=== PATIENT | female | born 1950 | race Hispanic/Latino ===

== ENCOUNTER → 2017-11-23 | Outpatient (CLI) | payer MEDICARE ==
[~2017-11-23] MED LIST: AMLO5TAB2 PO; FENO145T37 PO; INSLAN SQ; LISI2.5T2 PO; LOSA1TAB54 PO
== END | disposition home or self-care (01) ==
LOC: RAH 07:53
PROVIDERS: ATTEND Family Medicine
DX: I63.9 Cerebral infarction, unspecified (principal); G31.9 Degenerative disease of nervous system, unspecified; I73.9 Peripheral vascular disease, unspecified; Z86.73 Personal history of transient ischemic attack (TIA), and cerebral infarction without residual deficits
CPT/HCPCS: 70551

== ENCOUNTER → 2023-09-04 | Outpatient (CLI) | payer MEDICARE ==
[~2023-09-04] MED LIST changes: +ACET-2079 PO; +AEC81 PO; +AMLO-257 PO; -AMLO5TAB2 PO; +AMLO5TAB5 PO; +ATOR40TA69 PO; +FAMO-136 PO; +FENO145T26 PO; -FENO145T37 PO; +FERR324T4 PO; +FLUO20CA30 PO; +LISI2.5T13 PO; -LISI2.5T2 PO; +LOSA-420 PO; +SENN-141 PO
== END | disposition home or self-care (01) ==
LOC: RAH 14:10
PROVIDERS: ATTEND Family Medicine
DX: Z12.31 Encounter for screening mammogram for malignant neoplasm of breast (principal); Z13.820 Encounter for screening for osteoporosis; M85.88 Other specified disorders of bone density and structure, other site
CPT/HCPCS: 77067; 77080

== ENCOUNTER 2024-12-25 18:56 | Inpatient (IN) | payer MEDICARE ==
[~2024-12-25] VITALS: Ht 149.9 cm; Wt 64.0 kg
[~2024-12-25 18:56] MED LIST changes: -ACET-2079 PO; -AEC81 PO; -AMLO-257 PO; -AMLO5TAB5 PO; +AMOX1TAB16 PO; +ASPI-1443 PO; -ATOR40TA69 PO; -FAMO-136 PO; -FENO145T26 PO; -FERR324T4 PO; +FERS325 PO; -FLUO20CA30 PO; +FLUO20TA29 PO; +FOLI1 PO; -INSLAN SQ; -LISI2.5T13 PO; -LOSA-420 PO; -LOSA1TAB54 PO; +POTA-202 PO; -SENN-141 PO
[2024-12-25] MEDS ORDERED: acetaMINOPHEN 500 MG TABLET PO ONE (20:00)
[2024-12-25 20:27] LABS: RAPID GROUP A STREP negative (NEGATIVE)
--- NOTE | 2024-12-25 20:39 | ERN ---
General Chief Complaint: Fever Stated Complaint: FEVER,MULTIPLE COMPLAINTS Time Seen by MD: 19:06 Source: patient History of Present Illness Initial Comments Patient is a 74-year-old female coming in to be evaluated for multiple complaints. Per her family member patient has history of stroke and dementia soap very poor historian. Family member is the historian in this case. Per family member patient has been reluctant to eat. Patient has been having body aches per family members evaluation as well as fever and chills. Allergies: Coded Allergies: No Known Allergies (Unverified Allergy, Unknown, 03/17/23) No Known Drug Allergies (Unverified Allergy, Unknown, 01/09/15) Home Meds Active Scripts Amoxicillin/Potassium Clav (Amox Tr-K Clv 875-125 mg Tab) 875 Mg-125 Mg Tablet, 1 TAB PO BID for 10 Days, #20 TAB 0 Refills Prov:ANA CARLOS N 11/24/24 Potassium Chloride (Potassium Chloride) 20 Meq Tab.er.prt, 20 MEQ PO DAILY for Hypokalemia for 7 Days, #7 TAB 0 Refills Prov:ANA CARLOS N 11/24/24 Reported Medications Aspirin (Aspirin EC) 81 Mg Tablet.dr, 1 TAB PO DAILY for 30 Days, #30 TAB 0 Refills 11/20/24 Folic Acid (Folvite) 1 Mg Tab, 1 TAB PO DAILY for 30 Days, #30 TAB 0 Refills 11/20/24 Ferrous Sulfate (Ferrous Sulfate) 325 Mg (65 Mg Iron) Ectab, 1 TAB PO DAILY for 30 Days, #30 TAB 0 Refills 11/20/24 Fluoxetine HCl (Fluoxetine HCl) 20 Mg Tablet, 1 TAB PO DAILY for 30 Days, #30 TAB 0 Refills 11/20/24 Past Medical History Past Medical History: CVA, Depression Past Surgical History: Unknown ROS Dictation CONSTITUTIONAL: No chills, no fever, weakness, no diaphoresis, malaise. HEAD/FACE: No signs of trauma. EENT: No eye pain, no blurred vision, no tearing, no double vision, no ear pain, no ear discharge, no nose pain, no nasal congestion, no throat pain, no throat swelling, no mouth pain. RESPIRATORY: No cough, no orthopnea, no SOB, no stridor, no wheezing. CARDIOVASCULAR: No chest pain, no edema, no palpitations, no syncope. GASTROINTESTINAL/ABDOMINAL: No abdominal pain, no constipation, no diarrhea, no nausea, no vomiting. GENITOURINARY: No abnormal discharge, no dysuria, no frequent urination, no hematuria. No complaints of pain in the genitals. MUSCULOSKELETAL: No back pain, no gout, no joint pain, no joint swelling, no muscle pain, no muscle stiffness, no neck pain. INTEGUMENTARY: No change in color, no change in hair/nails, no dryness, no lesion, no lumps, no rash. NEUROLOGICAL/PSYCH: No anxiety, not depressed, no emotional problem, no headache, no numbness, no pre-existing deficit, no history of seizures, no tremors, no weakness. HEMATOLOGIC/LYMPHATIC: Not anemic, no history of blood clots, no apparent bleeding, no bruising, glands not swollen. All Systems Negative, Except as Noted. Physical Exam Physical Exam Dictation VITAL SIGNS: Reviewed. GENERAL APPEARANCE: Alert, oriented x1, no acute distress, obese. HEAD AND FACE: Non-traumatic. EYES: PERRL, pink conjunctivas, eyelid no trauma, anterior chamber clear. EARS: Pinnas intact and no signs of trauma or erythema. Ear canals clear and no discharge. TMs no erythema. NOSE: No discharge, no bleeding. OROPHARYNX: Mouth normal, teeth no caries, tongue pink. Pharynx clear, no erythema. Tonsils no exudates, no abscesses noted. Mucous membrane moist. NECK: Supple, non-tender, no thyromegaly, no masses, no JVD, no bruits. BREAST: Deferred. CHEST: No tenderness, no crepitus, no paradoxical movement, no retractions. LUNGS: Clear, well-ventilated, symmetric, no rales, no wheezing, no rhonchi, no stridor, good breath sounds bilaterally. HEART: Regular rate, regular rhythm, no murmur, no gallops. VASCULAR: No peripheral edema. ABDOMEN: Soft, positive bowel sounds, nondistended, no guarding, nontender, no rebound, no masses no hepatomegaly, no splenomegaly, no Blount's sign, no hernias. RECTAL: Deferred. GENITAL: Deferred. NEUROLOGICAL: Normal speech, gross motor function intact, gross sensory function intact. MUSCULOSKELETAL: Neck nontender, full range of motion, back nontender, full range of motion. EXTREMITIES: Nontender, full range of motion. SKIN: Color pink, dry, no turgor, no rash, no lacerations, no abrasions, no contusions. LYMPHATICS: Deferred. Results Laboratory and Microbiology Lab and Micro Result Laboratory Tests Test 12/25/24 20:07 12/25/24 20:33 12/25/24 23:55 Influenza Type A Antigen Negative For Type A Influenza Type B Antigen Negative For Type B SARS-CoV-2, RNA, NAAT NEGATIVE SARS CoV-2 Group A Streptococcus Rapid negative (NEGATIVE) White Blood Count 8.7 K/uL (4.8-10.8) Red Blood Count 4.57 MIL/uL (4.00-5.50) Hemoglobin 12.5 g/dL (12.0-16.0) Hematocrit 39.0 % (36-48) Mean Corpuscular Volume 85.3 fL (79-99) Mean Corpuscular Hemoglobin 27.4 pg (27.0-33.0) Mean Corpuscular Hemoglobin Concent 32.1 g/dL (32.0-36.0) Red Cell Distribution Width 12.4 % (11.0-15.5) Platelet Count 193 K/uL (130-400) Mean Platelet Volume 10.1 fL (7.5-10.5) Immature Granulocyte % (Auto) 0.6 % (0-1) Neutrophils (%) (Auto) 81.3 % (40.0-77.0) H Lymphocytes (%) (Auto) 9.6 % (21.0-51.0) L Monocytes (%) (Auto) 8.3 % (3.0-13.0) Eosinophils (%) (Auto) 0.0 % (0.0-8.0) Basophils (%) (Auto) 0.2 % (0.0-5.0) Neutrophils # (Auto) 7.1 K/uL (1.8-7.7) Lymphocytes # (Auto) 0.8 K/uL (1.0-4.8) L Monocytes # (Auto) 0.7 K/uL (0.1-1.0) Eosinophils # (Auto) 0.00 K/uL (0.00-0.70) Basophils # (Auto) 0.02 K/uL (0.00-0.20) Absolute Immature Granulocyte (auto 0.05 K/uL (0-1) Nucleated Red Blood Cells 0.0 % (0.0-0.19) White Cell Morphology Comment CONSISTENT W/DIFF Sodium Level 129 mmol/L (136-145) L Potassium Level 4.3 mmol/L (3.5-5.1) Chloride Level 96 mmol/L (101-111) L Carbon Dioxide Level 25 mmol/L (21-32) Blood Urea Nitrogen 16 mg/dL (7-18) Creatinine 0.9 mg/dL (0.5-1.0) Glomerular Filtration Rate Calc 67 mL/min (>90) Random Glucose 151 mg/dL (70-105) H Total Calcium 8.5 mg/dL (8.5-10.1) Total Bilirubin 0.5 mg/dL (0.2-1.0) Aspartate Amino Transf (AST/SGOT) 38 U/L (10-37) H Alanine Aminotransferase (ALT/SGPT) 20 U/L (12-78) Alkaline Phosphatase 62 U/L (50-136) Troponin I High Sensitivity 15 ng/L (4-50) Total Protein 7.9 g/dL (6.0-8.3) Albumin 3.1 g/dL (3.5-5.0) L Urine Color YELLOW (YELLOW) Urine Appearance CLEAR (CLEAR) Urine pH 5.5 (5.0-8.0) Urine Specific [place] 1.024 (1.001-1.031) Urine Protein 50 mg/dL (NEGATIVE) H Urine Glucose (UA) NEGATIVE mg/dL (NEGATIVE) Urine Ketones 10 mg/dL (NEGATIVE) H Urine Occult Blood NEGATIVE (NEGATIVE) Urine Nitrate NEGATIVE (NEGATIVE) Urine Bilirubin NEGATIVE mg/dL (NEGATIVE) Urine Urobilinogen 2.0 mg/dL (0.2-1.0) H Urine Leukocyte Esterase NEGATIVE Arnaldo/uL Urine RBC 2-5 /HPF (0-1) H Urine WBC 11-25 /HPF (0-1) H Urine Squamous Epithelial Cells RARE /HPF (0-2) Urine Bacteria FEW /HPF (None Seen) Urine Hyaline Casts 2-5 /LPF (0-1 /LPF) H Labs Reviewed?: Yes EKG/XRAY/US/CT/MRI EKG Comment 12/25/2024 time 8:06 p.m. Ventricular rate [address] wave elevation or depression CT Scan Comment CT CHEST -WITHOUT CONTRAST- PARTIALLY VISUALIZED SMALL BOWEL CENTRAL UPPER ABDOMEN IS DILATED AND MAXILLARY WITH 103.1, SUGGESTIVE OF ILEUS SMALL AMOUNT OF RIGHT BASILAR TO LEGS HE WAS LIKELY DUE UNDER INFLAMMATION, OSTEOPENIA MDM MDM: Differential diagnosis: MY BOWEL OBSTRUCTION, ILEUS, Rationale: Tests considered and ordered secondary to shared decision making include: Previous outside records reviewed: Old ER visits. Risk of complication and/or morbidity or mortality of patient management: None Medications-Per medication reconciliation Need for hospitalization: Patient does meet criteria for hospitalization. Need for emergency major/minor surgery: No There are no social concerns with this patient. Prescription drug management Prescriptions will include symptomatic care Patient's prior external medical records from other ER visits were reviewed by me as indicated. Prior testing and results from previous visits were reviewed. Prior tests were taken into account with medical decision making and resource utilization, independent historian/historians were used to obtain complete medical history. I independently interpreted the test that were performed, results were reviewed by me and considered findings on radiology if ordered. Medical management and examination interpretation discussions were had by me with other qualified healthcare professionals as indicated for the patient's care. PATIENT WILL BE ADMITTED UNDER THE CARE OF HOSPITALIST GROUP FOR ONGOING MANAGEMENT OF ILEUS OR SMALL-BOWEL OBSTRUCTION. ED Course Orders Procedure Category Date Status Time Cbc With Differential LAB 12/25/24 Complete 19:47 Comprehensive LAB 12/25/24 Complete Metabolic Panel 19:47 Troponin I High LAB 12/25/24 Complete Sensitivity 19:47 12 Lead Ekg Tracing- EKG 12/25/24 Logged Technical 19:47 Urinalysis LAB 12/25/24 Complete W/Microscopic 19:47 Covid Rna Naat LAB 12/25/24 Complete 19:47 Influenza Type A & B, LAB 12/25/24 Complete Rapid 19:47 Rapid (Group A Strep) LAB 12/25/24 Complete 19:47 Chest 1vw RAD 12/25/24 Taken 19:47 Acetaminophen 500mg PHA 12/25/24 Complete Tab (Tylenol 500mg T 20:00 0.9%Nacl 1000ml (Ns PHA 12/25/24 Complete 1000ml) 20:00 Blood Cult ANNETTE 12/25/24 In Process 20:29 Pharmacy PHA 12/25/24 Complete Communication (Lace 21:00 Acetaminophen PHA 12/26/24 Complete (Acetaminophen) 00:00 Acetaminophen PHA 12/26/24 Complete (Acetaminophen) 22:00 Acetaminophen PHA 12/25/24 In Process (Acetaminophen) 22:00 Ceftriaxone 1g Vial PHA 12/25/24 Complete (Rocephine 1g Inj) 23:00 Ct Chest W/O Contrast CT 12/26/24 Taken 00:47 Culture Urine ANNETTE 12/26/24 In Process 00:50 Abd 1vw RAD 12/26/24 Taken 02:40 Current Medications Medications (Trade) Dose Ordered Sig/Lonnie Route PRN Reason Start Time Stop Time Status Last Admin Dose Admin Acetaminophen (TYLenol 500MG TAB) 1,000 mg ONCE ONCE PO 12/25/24 20:00 12/25/24 20:59 DC Acetaminophen (acetaMINOPHEN) 650 mg Q6H6 IVPB 12/25/24 22:00 01/24/25 21:59 12/25/24 21:30 Acetaminophen (acetaMINOPHEN) 650 mg Q6H6 IVPB 12/26/24 00:00 12/25/24 21:26 DC Acetaminophen (acetaMINOPHEN) 650 mg Q6H6 IVPB 12/26/24 22:00 12/25/24 21:29 DC Ceftriaxone Sodium (ROCEphine 1G INJ) 1 gm ONCE ONCE IVPB 12/25/24 23:00 12/25/24 23:01 DC 12/25/24 23:40 Pharmacy Profile Note (Lace Assessment) 1 each AD MISC 12/25/24 21:00 12/26/24 01:17 DC Sodium Chloride 1,000 ml @ 0 mls/hr ONCE ONCE IV 12/25/24 20:00 12/25/24 20:01 DC 12/25/24 20:50 Vital Signs Date Time Temp Pulse Resp B/P (MAP) Pulse Ox O2 Delivery O2 Flow Rate FiO2 12/26/24 02:42 99.3 89 17 116/51 95 Room Air* 0 12/26/24 00:55 99.3 89 16 118/55 94 Room Air* 0 12/25/24 23:54 99.3 90 18 133/59 95 Room Air* 0 12/25/24 22:30 89 17 122/50 95 Room Air* 0 12/25/24 21:51 92 19 101/54 95 Room Air* 0 12/25/24 20:32 102.4 90 20 128/58 97 Room Air* 0 12/25/24 19:36 100.8 102 20 136/73 97 Room Air DX & DISP Disposition: Inpatient Decision to Admit Time: 03:12 Departure Impression: Primary Impression: Ileus Additional Impression: Small bowel obstruction Condition: Stable Referrals: SINDI WELSH MD (PCP) TE SIMPSON MD Dec 25, 2024 20:39
[2024-12-25 20:42] LABS: SARS-CoV-2, RNA, NAAT NEGATIVE SARS CoV-2 (NEGATIVE)
[2024-12-25 20:44] LABS: INFLUENZA TYPE A Negative For Type A (NEGATIVE); INFLUENZA TYPE B Negative For Type B (NEGATIVE)
[2024-12-25 20:45] LABS: BASOPHILS # (AUTO) 0.02 K/uL (0.00-0.20); BASOPHILS % (AUTO) 0.2 % (0.0-5.0); IMMATURE GRANULOCYTE ABSOLUTE 0.05 K/uL (0-1); LYMPHOCYTES # (AUTO) 0.8 K/uL (1.0-4.8); LYMPHOCYTES % (AUTO) 9.6 % (21.0-51.0); MEAN CORPUSCULAR HEMOGLOBIN 27.4 pg (27.0-33.0); MEAN CORPUSCULAR HGB CONC 32.1 g/dL (32.0-36.0); MEAN CORPUSCULAR VOLUME 85.3 fL (79-99); MONOCYTES # (AUTO) 0.7 K/uL (0.1-1.0); MONOCYTES % (AUTO) 8.3 % (3.0-13.0); NEUTROPHILS # (AUTO) 7.1 K/uL (1.8-7.7); NEUTROPHILS % (AUTO) 81.3 % (40.0-77.0); PLATELET COUNT (AUTO) 193 K/uL (130-400); RED BLOOD CELL COUNT(AUTO) 4.57 MIL/uL (4.00-5.50); RED CELL DISTRIBUTION WIDTH 12.4 % (11.0-15.5); WHITE BLOOD COUNT (AUTO) 8.7 K/uL (4.8-10.8)
[2024-12-25] MEDS: 0.9%NACL 1000ML 1,000 ML IV ONE (20:50)
[2024-12-25 20:54] LABS: CREATININE 0.9 mg/dL (0.5-1.0); POTASSIUM 4.3 mmol/L (3.5-5.1)
[2024-12-25] MEDS ORDERED: PHARMACY COMMUNICATION 1 EACH EACH MISC SCH (21:00)
[2024-12-25 21:04] LABS: ALBUMIN 3.1 g/dL (3.5-5.0); BILIRUBIN,TOTAL 0.5 mg/dL (0.2-1.0); TOTAL PROTEIN, SERUM 7.9 g/dL (6.0-8.3)
[2024-12-25] MEDS: acetaMINOPHEN 1,000 MG/100 ML VIAL IVPB SCH (21:30)
[2024-12-25 21:42] LABS: WBC MORPHOLOGY CONSISTENT W/DIFF
[2024-12-25] MEDS: cefTRIAXone 1G VIAL IVPB ONE (23:40)
[2024-12-26 00:05] LABS: APPEARANCE,URINE CLEAR (CLEAR); BILIRUBIN,URINE NEGATIVE (NEGATIVE); COLOR,URINE YELLOW (YELLOW); GLUCOSE, URINE (UA) NEGATIVE (NEGATIVE); KETONES,URINE 10 mg/dL (NEGATIVE); LEUKOCYTE ESTERASE ,URINE NEGATIVE Leu/uL (NEGATIVE); NITRATE,URINE NEGATIVE (NEGATIVE); OCCULT BLOOD,URINE NEGATIVE (NEGATIVE); PH,URINE 5.5 (5.0-8.0); PROTEIN,URINE 50 mg/dL (NEGATIVE)
[2024-12-26 00:46] LABS: BACTERIA,URINE FEW /HPF (None Seen); MUCUS,URINE RARE LPF (None Seen); SQUAMOUS EPITHELIAL CELL,UR RARE /HPF (0-2)
--- NOTE | 2024-12-26 02:00 | NUR ---
REPORT GIVEN TO CORAZON BROWN AT THIS TIME
--- NOTE | 2024-12-26 04:01 | NUR ---
FAMILY NUMBERS STEPHANI RUIZ (GRAND-DAUGHTER) [phone] EVANBLESSING (DAUGHTER) [phone]
[2024-12-26] MEDS ORDERED: acetaMINOPHEN 325 MG TAB PO PRN ×2 (04:30)
[2024-12-26] MEDS ORDERED: ondanSETRON 4MG INJ IV PRN (04:30)
--- NOTE | 2024-12-26 04:39 | HP ---
[facility] Date of Service: Dec 26, 2024 Time of Service: 04:22 PCP: Jude Dowd HISTORY OF PRESENT ILLNESS: This is a 74-year-old female, a poor historian, with past medical history of dementia, stroke x2, hypertension who presents to the ED for complaints of fever ,chills body pains and loss of appetite.Patient is non communicative and unable to talk wihich is her baseline due to previous stroke x 2 with a right sided paralysis as per grand daughter Fiona Jasmine.Patient has been bedbound as per family and needs total assistance with care.Patient refused to eat today had been complaining of sorethroat and having some cough however patient had a temperature of 100 at home and T102 so family decided to send patient to the ED for evaluation.Details and information are mostly taken from ER MD ,primary nurse and grand daughter who states she has very limited knowledge because her mom is the one taking care of the patient and is not available at this time. As per grand daughter patient has no bowel movement today but not sure when was her last BM. Upon arrival vital signs was temperature of a 100.8, heart rate 102, respiration 20, blood pressure 136/73 saturation 97% on room air Seen and examined patient in the ED,asleep but arousable,respirations even and nonlabored.No reported chest pain,abdominal pain ,nausea,vomiting and diarrhea.Abdomen is soft and non tender with hypoactive bowel sounds on auscultation. Vital signs temperature 99.3, heart rate 94, respirations 16, blood pressure 114/69 saturation 94% on room air. Labs: CBC unremarkable. Sodium 129, chloride 96, glucose 151, AST 38, troponin 15, albumin 3.1 urinalysis remarkable for protein ketones, urobilinogen, wean RBC 2-5, urine WBC 11-25 urine bacteria few hyaline cast 2-5. Influenza a and B negative SARs COVID negative rapid strep negative abdominal x-ray, chest x-ray and CT chest were done in the ER pending result at this time. While in the ER patient received Tylenol 1000 mg p.o., 1 L NS bolus, Rocephin 1 g IV Tylenol 650 mg IV. We will admit patient for further medical management. REVIEW OF SYSTEMS unable to perform patient is cognitively impaired PAST MEDICAL HISTORY: [ Anemia, Dementia, MCA stroke, hypertension and diabetes ] PAST SURGICAL HISTORY: [ MCA stroke and stent placement 2020 and bilateral knee surgery ] PAST SOCIAL HISTORY: [ Patient lives with daughter. Patient does not smoke, drink alcohol or recreational drug as per granddaughter who was at bedside ] FAMILY HISTORY: [Hypertension and cancer ] Coded Allergies: No Known Allergies (Unverified Allergy, Unknown, 03/17/23) No Known Drug Allergies (Unverified Allergy, Unknown, 01/09/15) PHYSICAL EXAM GENERAL APPEARANCE: Patient is asleep and arousable in no acute cardiopulmonary distress. NEUROLOGICAL: Patient is cognitively impaired with right-sided paralysis which is her baseline HEENT: Face is symmetric. Pupils are equal and reactive. Extraocular movements are intact. NECK: Supple. No JVD. No thyromegaly. No submental, submandibular, pre-/postau ricular, occipital or supraclavicular lymphadenopathy. CHEST: Normal chest expansion. No Telemetry. LUNGS: Absence of any rales, rhonchi or any wheezing. CARDIOVASCULAR: Regular. S1 and S2 normal. No appreciable rubs, murmurs or gallops. ABDOMEN: Soft, nontender, and nondistended. There is no rebound, voluntary guarding, or rigidity. : Deferred. Stewart. EXTREMITIES: Non-edematous and not cyanotic. No clubbing. Good capillary refill. SKIN: No skin breakdown. Vital Sign (Last 24 Hours) 12/26/24 12/26/24 02:42 04:02 Temp 99.3 Pulse 94 Resp 16 B/P (MAP) 114/69 Pulse Ox 94 O2 Delivery Room Air* O2 Flow Rate 0 FiO2 21 LABS: Laboratory: Test 12/25/24 23:55 12/25/24 20:33 12/25/24 20:07 Range/Units Urine Color YELLOW YELLOW Urine Appearance CLEAR CLEAR Urine pH 5.5 5.0-8.0 Urine Specific [place] 1.024 1.001-1.031 Urine Protein 50 H NEGATIVE mg/dL Urine Glucose (UA) NEGATIVE NEGATIVE mg/dL Urine Ketones 10 H NEGATIVE mg/dL Urine Occult Blood NEGATIVE NEGATIVE Urine Nitrate NEGATIVE NEGATIVE Urine Bilirubin NEGATIVE NEGATIVE mg/dL Urine Urobilinogen 2.0 H 0.2-1.0 mg/dL Urine Leukocyte Esterase NEGATIVE NEGATIVE Arnaldo/uL Urine RBC 2-5 H 0-1 /HPF Urine WBC 11-25 H 0-1 /HPF Urine Squamous Epithelial Cells RARE 0-2 /HPF Urine Bacteria FEW None Seen /HPF Urine Hyaline Casts 2-5 H 0-1 /LPF /LPF White Blood Count 8.7 4.8-10.8 K/uL Red Blood Count 4.57 4.00-5.50 MIL/uL Hemoglobin 12.5 12.0-16.0 g/dL Hematocrit 39.0 36-48 % Mean Corpuscular Volume 85.3 79-99 fL Mean Corpuscular Hemoglobin 27.4 27.0-33.0 pg Mean Corpuscular Hemoglobin Concent 32.1 32.0-36.0 g/dL Red Cell Distribution Width 12.4 11.0-15.5 % Platelet Count 193 130-400 K/uL Mean Platelet Volume 10.1 7.5-10.5 fL Immature Granulocyte % (Auto) 0.6 0-1 % Neutrophils (%) (Auto) 81.3 H 40.0-77.0 % Lymphocytes (%) (Auto) 9.6 L 21.0-51.0 % Monocytes (%) (Auto) 8.3 3.0-13.0 % Eosinophils (%) (Auto) 0.0 0.0-8.0 % Basophils (%) (Auto) 0.2 0.0-5.0 % Neutrophils # (Auto) 7.1 1.8-7.7 K/uL Lymphocytes # (Auto) 0.8 L 1.0-4.8 K/uL Monocytes # (Auto) 0.7 0.1-1.0 K/uL Eosinophils # (Auto) 0.00 0.00-0.70 K/uL Basophils # (Auto) 0.02 0.00-0.20 K/uL Absolute Immature Granulocyte (auto 0.05 0-1 K/uL Nucleated Red Blood Cells 0.0 0.0-0.19 % White Cell Morphology Comment CONSISTENT W/DIFF Sodium Level 129 L 136-145 mmol/L Potassium Level 4.3 3.5-5.1 mmol/L Chloride Level 96 L 101-111 mmol/L Carbon Dioxide Level 25 21-32 mmol/L Blood Urea Nitrogen 16 7-18 mg/dL Creatinine 0.9 0.5-1.0 mg/dL Glomerular Filtration Rate Calc 67 >90 mL/min Random Glucose 151 H 70-105 mg/dL Total Calcium 8.5 8.5-10.1 mg/dL Total Bilirubin 0.5 0.2-1.0 mg/dL Aspartate Amino Transf (AST/SGOT) 38 H 10-37 U/L Alanine Aminotransferase (ALT/SGPT) 20 12-78 U/L Alkaline Phosphatase 62 50-136 U/L Troponin I High Sensitivity 15 4-50 ng/L Total Protein 7.9 6.0-8.3 g/dL Albumin 3.1 L 3.5-5.0 g/dL Influenza Type A Antigen Negative For Type A NEGATIVE Influenza Type B Antigen Negative For Type B NEGATIVE SARS-CoV-2, RNA, NAAT NEGATIVE SARS CoV-2 NEGATIVE Group A Streptococcus Rapid negative NEGATIVE Current Medications Medications (Trade) Dose Ordered Sig/Lonnie Route PRN Reason Start Time Stop Time Status Last Admin Dose Admin Acetaminophen (acetaMINOPHEN) 650 mg Q6H6 IVPB 12/25/24 22:00 01/24/25 21:59 12/25/24 21:30 650 MG Acetaminophen (acetaMINOPHEN) 650 mg Q6H6 IVPB 12/26/24 00:00 12/25/24 21:26 DC Acetaminophen (acetaMINOPHEN) 650 mg Q6H6 IVPB 12/26/24 22:00 12/25/24 21:29 DC Pharmacy Profile Note (Lace Assessment) 1 each AD [facility] [place] 12/25/24 21:00 12/26/24 01:17 DC DIAGNOSTICS / RADIOLOGY: [ ] ASSESSMENT: Suspected abdominal Ileus versus small-bowel obstruction POA Sirs with organ dysfunction POA Suspected urinary tract infection POA Protein calorie malnutrition POA Functional quadriplegia POA History of stroke x2 with right-sided paralysis POA PLAN: We will admit patient in medical telemetry We will keep patient nothing by mouth We will start NS @ 100 ml / hr x 2 bags and re evaluate We will start patient on Rocephin 1 g IV b.i.d. for empiric coverage We will start on Famotidine 20 mg IV daily for GI prophylaxis We will replace electrolytes as needed per protocol We will start on insulin sliding scale AC & HS with hypoglycemia protocol We will add prn medication for fever,pain,cough and nausea We will reconcile home meds once medlist available We will request case management service We will request PT service Fall precaution We will request frequent turning Q 2 hours to prevent decubitus ulcer We will request dietary consultation to assess malnutrition We will follow-up abdominal x-ray, chest x-ray and CT chest results We will defer neurosurgery consultation for day shift rounding provider depending on above results We will request labs in am Further orders to follow depending on above results Case discussed with attending physician and came up with above treatment and plan of care. ADVANCED CARE PLANNING 1. Which of the following were discussed? Hospice Care - No Therapeutic options - Yes Advance Directives - No Other discussions - 2. Discussed with who? Patient and grand daughter Fiona 3. Voluntary nature of this service was explained to the patient? Yes 4. Amount of time spent - ___22____ 5. Reviewed by Physician? (if this service was performed by NPP) Yes Patient seen and examined by me. Agree with note by FINANCIAL WELLNESS COACH SEE ADDITIONAL ORDERS PER CHART DISCUSSED WITH NURSING STAFF LORAINE ALVAREZ COMMERCIAL MANAGER Dec 26, 2024 04:39
[2024-12-26] MEDS: 0.9%NACL 1000ML 1,000 ML IV SCH (05:15)
--- NOTE | 2024-12-26 06:26 | EKG ---
[facility] Test Date: 2024-12-25 Test Time: 20:06:59 Pat Name: GARFIELD COX Department: [facility] Room: ED [facility] Gender: F Acid Regenerator: 1081 : 1950 Requested By: TE SIMPSON Order Number: [id number] Reading MD: Jb Quiroz Measurements Intervals Dorothy Rate: 93 P: 42 OR: 147 QRS: 13 QRSD: 87 T: 18 QT: 344 QTc: 429 Interpretive Statements Sinus rhythm Inferior infarct, old Nonspecific STT abnormality Compared to ECG 11/20/2024 14:04:43 Myocardial infarct finding now present Sinus tachycardia no longer present Electronically Signed On 12-26-2024 19:40:51 PLUMBER'S HELPER by Jb Quiroz Please click the below link to view image of tracing.
--- NOTE | 2024-12-26 06:37 | HMCIMG ---
CT CHEST W/O CONTRAST HISTORY: Abnormal chest x-ray COMPARISON: Chest x-ray from December 25, 2024 TECHNIQUE: Multiple sequential axial images of the chest were obtained from the thoracic inlet through upper abdomen. Patient was not given contrast through intravenous route. FINDINGS: There are mild interstitial fibrosis. Bibasilar linear atelectasis. There is mild gastric distention. Small bowel dilatation is seen with air-fluid level may be related to ileus versus enteritis versus obstruction. No pleural effusion or pericardial effusion is seen. There is no evidence of pneumothorax. There are normal size mediastinal and hilar lymph nodes. The heart is not enlarged. Coronary arterial calcifications are seen. The study is limited due to poor positioning. Degenerative changes of the thoracolumbar spine are present. There is no evidence of adrenal nodule. IMPRESSION: 1. There are mild interstitial fibrosis. Bibasilar linear atelectasis. There is mild gastric distention. Small bowel dilatation is seen with air-fluid level may be related to ileus versus enteritis versus obstruction. CT was performed with one or more following dose reduction techniques: automated exposure control, adjustment of the mA and kv according to patient's size, or use of a iterative reconstruction technique.
--- NOTE | 2024-12-26 07:00 | NUR ---
REPORT GIVEN TO JUAN JOSE BROWN AT THIS TIME./MADINA
[2024-12-26 07:30] LABS: BASOPHILS # (AUTO) 0.01 K/uL (0.00-0.20); BASOPHILS % (AUTO) 0.1 % (0.0-5.0); HEMATOCRIT 33.7 % (36-48); IMMATURE GRANULOCYTE ABSOLUTE 0.03 K/uL (0-1); LYMPHOCYTES # (AUTO) 0.9 K/uL (1.0-4.8); LYMPHOCYTES % (AUTO) 11.5 % (21.0-51.0); MEAN CORPUSCULAR HEMOGLOBIN 27.5 pg (27.0-33.0); MEAN CORPUSCULAR HGB CONC 32.3 g/dL (32.0-36.0); MEAN CORPUSCULAR VOLUME 85.1 fL (79-99); MONOCYTES # (AUTO) 0.7 K/uL (0.1-1.0); MONOCYTES % (AUTO) 8.9 % (3.0-13.0); NEUTROPHILS # (AUTO) 6.3 K/uL (1.8-7.7); NEUTROPHILS % (AUTO) 79.1 % (40.0-77.0); PLATELET COUNT (AUTO) 169 K/uL (130-400); RED BLOOD CELL COUNT(AUTO) 3.96 MIL/uL (4.00-5.50); RED CELL DISTRIBUTION WIDTH 12.2 % (11.0-15.5); WHITE BLOOD COUNT (AUTO) 7.9 K/uL (4.8-10.8)
[2024-12-26 07:45] LABS: ALBUMIN 2.6 g/dL (3.5-5.0); BILIRUBIN,DIRECT 0.2 mg/dL (0.0-0.3); BILIRUBIN,TOTAL 0.3 mg/dL (0.2-1.0); CREATININE 0.7 mg/dL (0.5-1.0); MAGNESIUM 1.8 mg/dL (1.80-2.40); POTASSIUM 3.7 mmol/L (3.5-5.1); TOTAL PROTEIN, SERUM 6.5 g/dL (6.0-8.3)
[2024-12-26] MEDS: cefTRIAXone 1G VIAL IV SCH (08:22)
[2024-12-26] MEDS: FAMOTIDINE 20MG VIAL IV SCH (08:22)
[2024-12-26 08:52] LABS: ERYTHROCYTE SEDIMENTATION RATE 30 MM/HR (0-30)
--- NOTE | 2024-12-26 08:58 | HMCIMG ---
CHEST 1VW REASON: fever COMPARISON: None. FINDINGS: Single view of the chest was obtained. Lungs are clear. Heart size is normal. There is no pulmonary vascular congestion. Mediastinum and bony thorax appear unremarkable. IMPRESSION: 1. Rotated but otherwise unremarkable appearing chest x-ray.
--- NOTE | 2024-12-26 09:12 | HMCIMG ---
ABD 1VW REASON: OBSTRUCTION FINDINGS: Single image of the abdomen was obtained. There is a moderately distended small bowel loops, predominantly in the left upper quadrant and mid abdomen. This could reflect a small bowel obstruction. There are some solid fecal material in the rectum, the colon is not distended. Bones and soft tissues appear unremarkable. IMPRESSION: 1. Abnormal bowel gas pattern, this is nonspecific but could indicate obstruction.
[2024-12-26] MEDS: MAGNESIUM 2GM PREMIX 50ML 50 ML IV SCH (13:05)
--- NOTE | 2024-12-26 13:50 | NUR ---
MANJEET HOGUE FOR GI CONSULT AT BEDSIDE FOR EVALUATION
--- NOTE | 2024-12-26 14:53 | PN ---
Consulting physician: Dr. Chicas Consulting service: General surgery Reason for consultation: Small bowel obstruction History of present illness: This is a 74-year-old female consulted to surgery for concerns of small-bowel obstruction. Patient however with a medical history consistent with dementia history of strokes and unable to give proper HPI being a nonverbal patient. Has been at bedside reports that she was brought to the hospital for concerns of sore throat. Upon initial workup concerns for small bowel obstruction noted on CT. Patient however has not had any nausea or vomiting reported. Repeat KUB today not consistent with the obstruction at this time. No pain elicited on physical exam. Abdomen soft. Patient currently NPO in ER Medical history: Anemia, Dementia, MCA stroke, hypertension and diabetes PAST SURGICAL HISTORY: MCA stroke and stent placement 2020 and bilateral knee surgery PAST SOCIAL HISTORY: Patient lives with daughter. Patient does not smoke, drink alcohol or recreational drug as per granddaughter who was at bedside FAMILY HISTORY: Hypertension and cancer Coded Allergies: No Known Allergies (Unverified Allergy, Unknown, 03/17/23) No Known Drug Allergies (Unverified Allergy, Unknown, 01/09/15) Review of systems: General: No Fever, No Chills, No Night Sweats, No Fatigue, No Malaise, No Appetite, No Other HEENT: No Head Aches, No Visual Changes, No Eye Pain, No Ear Pain, No Dysphasia, No Sinus Congestion, No Post Nasal Drip, No Sore Throat, No Other Pulmonary: No Dyspnea, No Cough, No Pleuritic Chest Pain, No Other Cardiovascular: No: Chest Pain, Palpitations, Orthopnea, Paroxysmal No Dyspnea, Edema, Lt Headedness, Other Gastrointestinal: No: Nausea, Vomiting, Diarrhea, Constipation, Melena, Hematochezia, Other Genitourinary: No Dysuria, No Frequency, No Incontinence, No Hematuria, No Retention, No Other Musculoskeletal: No: other, neck pain, shoulder pain, arm pain, back pain, hand pain, leg pain, foot pain Skin: No Urticaria, No Rash, No Other Neurological: No: Weakness, Numbness, Incoordination, Change in speech, Confusion, Seizures, Other Physical exam: GENERAL APPEARANCE: in no acute cardiopulmonary distress. NEUROLOGICAL: Patient is cognitively impaired with right-sided paralysis which is her baseline HEENT: Face is symmetric. Pupils are equal and reactive. Extraocular movements are intact. NECK: Supple. No JVD. No thyromegaly. No submental, submandibular, pre- /postauricular, occipital or supraclavicular lymphadenopathy. CHEST: Normal chest expansion. No Telemetry. LUNGS: Absence of any rales, rhonchi or any wheezing. CARDIOVASCULAR: Regular. S1 and S2 normal. No appreciable rubs, murmurs or gallops. ABDOMEN: Soft, nontender, and nondistended. There is no rebound, voluntary guarding, or rigidity. : Deferred. Stewart. EXTREMITIES: Non-edematous and not cyanotic. No clubbing. Good capillary refill. SKIN: No skin breakdown. Assessment: This is a 74-year-old female with concerns of small bowel obstruction Plan: For now patient to remain NPO No immediate surgical intervention scheduled or planned Patient to continue with IV fluids Repeat KUB tomorrow Continue with conservative management Dr. Mejia to be updated in patient's status and surgical team to follow patient closely Vitals/Labs Vital Signs Date Time Temp Pulse Resp B/P (MAP) Pulse Ox O2 Delivery O2 Flow Rate FiO2 12/26/24 14:44 98.4 82 20 138/68 96 Room Air* 0 21 Laboratory Tests 12/25/24 20:33 12/26/24 06:49 Medications Current Medications Acetaminophen 1,000 mg ONCE ONCE PO; Start 12/25/24 at 20:00; Stop 12/25/24 at 20:59; Status DC Sodium Chloride 1,000 ml @ 0 mls/hr ONCE ONCE IV Last administered on 12/25/24at 20:50; Start 12/25/24 at 20:00; Stop 12/25/24 at 20:01; Status [facility]; Start 12/25/24 at 21:00; Stop 12/26/24 at 01:17; Status DC Acetaminophen 650 mg Q6H6 IVPB; Start 12/26/24 at 00:00; Stop 12/25/24 at 21:26; Status DC Acetaminophen 650 mg Q6H6 IVPB; Start 12/26/24 at 22:00; Stop 12/25/24 at 21:29; Status DC Acetaminophen 650 mg Q6H6 IVPB Last administered on 12/25/24at 21:30; Start 12/25/24 at 22:00; Stop 01/24/25 at 21:59 Ceftriaxone Sodium 1 gm ONCE ONCE IVPB Last administered on 12/25/24at 23:40; Start 12/25/24 at 23:00; Stop 12/25/24 at 23:01; Status DC Acetaminophen 650 mg Q6H PRN PO; Start 12/26/24 at 04:30; Stop 01/25/25 at 04:29 Acetaminophen 650 mg Q4H PRN PO; Start 12/26/24 at 04:30; Stop 01/25/25 at 04:29 Ondansetron HCl 4 mg Q6H PRN IV; Start 12/26/24 at 04:30; Stop 01/25/25 at 04:29 Famotidine 20 mg Q24H IV Last administered on 12/26/24at 08:22; Start 12/26/24 at 09:00; Stop 01/25/25 at 08:59 Ceftriaxone Sodium 1 gm BID IV Last administered on 12/26/24at 08:22; Start 12/26/24 at 09:00; Stop 01/05/25 at 08:59 Sodium Chloride 1,000 ml @ 100 mls/hr Q10H IV Last administered on 12/26/24at 14:41; Start 12/26/24 at 04:30; Stop 01/25/25 at 04:29 Magnesium Sulfate 50 ml @ 0 mls/hr PROTOCOL IV Last administered on 12/26/24at 13:05; Start 12/26/24 at 09:30; Stop 01/25/25 at 09:29 MANJEET JAIME Jr. Dec 26, 2024 14:53
--- NOTE | 2024-12-26 19:15 | NUR ---
REPORT GIVEN TO ENRIQUE BROWN
[2024-12-26] MEDS ORDERED: acetaMINOPHEN 1,000 MG/100 ML VIAL IVPB SCH ×2 (22:00)
--- NOTE | 2024-12-26 22:04 | NUR ---
REPORT GIVEN TO KEVIN CEBALLOS FOR ROOM 419, ALL QUESTIONS ANSWERED AT THIS TIME. RN EXPECTING PT ARRIVAL TO THE UNIT.
[2024-12-26 22:30] VITALS: BP 99/68; PULSE 95; RESP 18; TEMP 97.3; O2SAT 96
[2024-12-26 23:21] VITALS: BP 99/68; PULSE 95; RESP 18; TEMP 97.3
[2024-12-27 04:15] VITALS: BP 122/75; PULSE 88; RESP 17; TEMP 97.8
[2024-12-27 05:40] LABS: MEAN CORPUSCULAR HEMOGLOBIN 27.4 pg (27.0-33.0); MEAN CORPUSCULAR HGB CONC 32.2 g/dL (32.0-36.0); MEAN CORPUSCULAR VOLUME 84.9 fL (79-99); RED BLOOD CELL COUNT(AUTO) 4.24 MIL/uL (4.00-5.50); RED CELL DISTRIBUTION WIDTH 12.5 % (11.0-15.5); WHITE BLOOD COUNT (AUTO) 10.7 K/uL (4.8-10.8)
[2024-12-27 05:51] LABS: CREATININE 0.7 mg/dL (0.5-1.0); MAGNESIUM 1.9 mg/dL (1.80-2.40); POTASSIUM 3.5 mmol/L (3.5-5.1)
[2024-12-27 08:00] VITALS: O2SAT 94
[2024-12-27 08:02] VITALS: BP 136/74; PULSE 102; RESP 19; TEMP 98.1
--- NOTE | 2024-12-27 09:10 | NUR ---
Nutritional Note: Pt lives with daughter, is non verbal due to past strokes, bedbound, and total assistance. Pt with recent loss of appetite and currently refusing to eat. Nutritional concerns: Inadequate oral intake and risk of malnutrition. Dysphagia concerns due to past strokes and nonverbal status. Potential need for nutritional support. Recommend: -if No signs of bowel obstruction persist, advance diet to clear liquids and appropriate diet textures. -[employer] evaluation -add PO supplements to Diet order once pt advances. -given pt inability to communication, hx of dementia, and total dependance for care, May need to consider secondary route for nutrition, possible PEG placement. - Electrolyte replacements per protocol -Monitor feeding tolerance, %, wt, and labs -If No BM >3days consider bowel stimulant. - Notify RD if additional nutrition concerns arise. SEE RD Nutritional Assessment for additional assessment information. Addendum: 12/27/24 at [address] Amended: Links added.
--- NOTE | 2024-12-27 10:30 | NUR ---
Order received and patient evaluated. Patient noted to be congested however unable to get patient to cough. PT team to follow. Addendum: 12/27/24 at 1304 by OTF ZAVALA PT Amended: Links added.
--- NOTE | 2024-12-27 10:38 | HMCIMG ---
ABD 1VW REASON: bowel obstsruction FINDINGS: Single image of the abdomen was obtained. There is moderate gaseous distention of large and small bowel loops. This appears to be present to the level of the rectum. Fecal impaction could cause this appearance. Low colon obstruction is less likely. Bones and soft tissues appear unremarkable. IMPRESSION: 1. Increasing distention of large and small bowel loops, predominantly air filled. 2. There appears to be large amount of solid fecal material in the rectum, fecal impaction could cause this appearance.
--- NOTE | 2024-12-27 10:39 | HMCIMG ---
CHEST 1VW REASON: crackles COMPARISON: 12/25/2024 FINDINGS: Single view of the chest was obtained. Lungs are clear. Heart size is normal. There is no pulmonary vascular congestion. Mediastinum and bony thorax appear unremarkable. IMPRESSION: 1. Normal single view chest x-ray.
[2024-12-27 11:53] VITALS: BP 138/78; PULSE 100; RESP 20; TEMP 98.3
--- NOTE | 2024-12-27 11:57 | PN ---
[facility] PROGRESS NOTE Date of Service: Dec 27, 2024 Time of Service: 11:45 SUBJECTIVE: [74 year old female admitted due to nausea vomiting abdominal pain. Imaging showed small bowel obstruction, repeated once showed increased intention of large and small loops, predominantly air-filled. There appears to be large amount of solid fecal material in the rectum, fecal impaction could cause this appearance. ] REVIEW OF SYSTEMS unable to perform patient is cognitively impaired PHYSICAL EXAM GENERAL APPEARANCE: Patient is asleep and arousable in no acute cardiopulmonary distress. NEUROLOGICAL: Patient is cognitively impaired with right-sided paralysis which is her baseline HEENT: Face is symmetric. Pupils are equal and reactive. Extraocular movements are intact. NECK: Supple. No JVD. No thyromegaly. No submental, submandibular, pre- /postauricular, occipital or supraclavicular lymphadenopathy. CHEST: Normal chest expansion. No Telemetry. LUNGS: Absence of any rales, rhonchi or any wheezing. CARDIOVASCULAR: Regular. S1 and S2 normal. No appreciable rubs, murmurs or gallops. ABDOMEN: Soft, nontender, and nondistended. There is no rebound, voluntary guarding, or rigidity. : Deferred. Stewart. EXTREMITIES: Non-edematous and not cyanotic. No clubbing. Good capillary refill. SKIN: No skin breakdown. Vital Signs (last 8hr) Date Time Temp Pulse Resp B/P (MAP) Pulse Ox O2 Delivery O2 Flow Rate FiO2 12/27/24 08:02 98.1 102 19 136/74 94 Room Air 12/27/24 04:15 97.9 88 17 122/75 93 Room Air LABS: Laboratory: Test 12/27/24 06:02 12/27/24 05:34 12/26/24 06:49 12/25/24 23:55 Range/Units Whole Blood Glucose 75 70-110 MG/DL White Blood Count 10.7 # 4.8-10.8 K/uL Red Blood Count 4.24 4.00-5.50 MIL/uL Hemoglobin 11.6 L 12.0-16.0 g/dL Hematocrit 36.0 36-48 % Mean Corpuscular Volume 84.9 79-99 fL Mean Corpuscular Hemoglobin 27.4 27.0-33.0 pg Mean Corpuscular Hemoglobin Concent 32.2 32.0-36.0 g/dL Red Cell Distribution Width 12.5 11.0-15.5 % Platelet Count 162 130-400 K/uL Mean Platelet Volume 10.0 7.5-10.5 fL Nucleated Red Blood Cells 0.0 0.0-0.19 % Sodium Level 138 136-145 mmol/L Potassium Level 3.5 3.5-5.1 mmol/L Chloride Level 104 101-111 mmol/L Carbon Dioxide Level 25 21-32 mmol/L Blood Urea Nitrogen 14 7-18 mg/dL Creatinine 0.7 0.5-1.0 mg/dL Glomerular Filtration Rate Calc 90 >90 mL/min Random Glucose 82 70-105 mg/dL Total Calcium 8.2 L 8.5-10.1 mg/dL Magnesium Level 1.90 1.80-2.40 mg/dL Immature Granulocyte % (Auto) 0.4 0-1 % Neutrophils (%) (Auto) 79.1 H 40.0-77.0 % Lymphocytes (%) (Auto) 11.5 L 21.0-51.0 % Monocytes (%) (Auto) 8.9 3.0-13.0 % Eosinophils (%) (Auto) 0.0 0.0-8.0 % Basophils (%) (Auto) 0.1 0.0-5.0 % Neutrophils # (Auto) 6.3 1.8-7.7 K/uL Lymphocytes # (Auto) 0.9 L 1.0-4.8 K/uL Monocytes # (Auto) 0.7 0.1-1.0 K/uL Eosinophils # (Auto) 0.00 0.00-0.70 K/uL Basophils # (Auto) 0.01 0.00-0.20 K/uL Absolute Immature Granulocyte (auto 0.03 0-1 K/uL Erythrocyte Sedimentation Rate 30 0-30 MM/HR Lactic Acid Level 1.4 0.8-2.5 mmol/L Total Bilirubin 0.3 # 0.2-1.0 mg/dL Direct Bilirubin 0.2 0.0-0.3 mg/dL Aspartate Amino Transf (AST/SGOT) 24 10-37 U/L Alanine Aminotransferase (ALT/SGPT) 17 12-78 U/L Alkaline Phosphatase 47 L 50-136 U/L Total Creatine Kinase 205 # 21-232 U/L Total Protein 6.5 6.0-8.3 g/dL Albumin 2.6 L 3.5-5.0 g/dL Urine Color YELLOW YELLOW Urine Appearance CLEAR CLEAR Urine pH 5.5 5.0-8.0 Urine Specific Merrick 1.024 1.001-1.031 Urine Protein 50 H NEGATIVE mg/dL Urine Glucose (UA) NEGATIVE NEGATIVE mg/dL Urine Ketones 10 H NEGATIVE mg/dL Urine Occult Blood NEGATIVE NEGATIVE Urine Nitrate NEGATIVE NEGATIVE Urine Bilirubin NEGATIVE NEGATIVE mg/dL Urine Urobilinogen 2.0 H 0.2-1.0 mg/dL Urine Leukocyte Esterase NEGATIVE NEGATIVE Arnaldo/uL Urine RBC 2-5 H 0-1 /HPF Urine WBC 11-25 H 0-1 /HPF Urine Squamous Epithelial Cells RARE 0-2 /HPF Urine Bacteria FEW None Seen /HPF Urine Hyaline Casts 2-5 H 0-1 /LPF /LPF Test 12/25/24 20:33 12/25/24 20:07 Range/Units White Cell Morphology Comment CONSISTENT W/DIFF Troponin I High Sensitivity 15 4-50 ng/L Influenza Type A Antigen Negative For Type A NEGATIVE Influenza Type B Antigen Negative For Type B NEGATIVE SARS-CoV-2, RNA, NAAT NEGATIVE SARS CoV-2 NEGATIVE Group A Streptococcus Rapid negative NEGATIVE Current Medications Medications (Trade) Dose Ordered Sig/Lonnie Route PRN Reason Start Time Stop Time Status Last Admin Dose Admin Acetaminophen (TYLenol 325MG TAB) 650 mg Q4H PRN PO MILD PAIN (1-3) 12/26/24 04:30 01/25/25 04:29 Acetaminophen (TYLenol 325MG TAB) 650 mg Q6H PRN PO TEMPERATURE GREATER THAN 101.5 12/26/24 04:30 01/25/25 04:29 Acetaminophen (acetaMINOPHEN) 650 mg Q6H6 IVPB 12/25/24 22:00 01/24/25 21:59 12/27/24 06:08 650 MG Acetaminophen (acetaMINOPHEN) 650 mg Q6H6 IVPB 12/26/24 00:00 12/25/24 21:26 DC Acetaminophen (acetaMINOPHEN) 650 mg Q6H6 IVPB 12/26/24 22:00 12/25/24 21:29 DC Ceftriaxone Sodium (ROCEphine 1G INJ) 1 gm BID IV 12/26/24 09:00 01/05/25 08:59 12/27/24 09:17 1 GM Famotidine (Pepcid 20mg Vial) 20 mg Q24H IV 12/26/24 09:00 01/25/25 08:59 12/27/24 09:17 20 MG Magnesium Sulfate 50 ml @ 0 mls/hr PROTOCOL IV 12/26/24 09:30 01/25/25 09:29 12/26/24 13:05 25 MLS/HR Ondansetron HCl (zoFRAN 4MG INJ) 4 mg Q6H PRN IV NAUSEA/VOMITING 12/26/24 04:30 01/25/25 04:29 Pharmacy Profile Note (Lace Assessment) 1 each AD MISC 12/25/24 21:00 12/26/24 01:17 DC Sodium Chloride 1,000 ml @ 100 mls/hr Q10H IV 12/26/24 04:30 01/25/25 04:29 12/27/24 00:43 100 MLS/HR DIAGNOSTICS / RADIOLOGY: [ ] ASSESSMENT: Suspected abdominal Ileus versus small-bowel obstruction POA Sirs with organ dysfunction POA Suspected urinary tract infection POA Protein calorie malnutrition POA Functional quadriplegia POA History of stroke x2 with right-sided paralysis POA PLAN: Continue with medical telemetry Keep her NPO until cleared by surgeon We will start LR at 50 ml/hr Continue to monitor Blood sugar with ACHS glucometer and insulin sliding scale. C/w Rocephin 1 g IV for empiric coverage C/w Famotidine 20 mg IV daily for GI prophylaxis We will continue to replace electrolytes as needed per protocol We will repeat flu a and B, rapid strep, COVID, urinalysis, blood cultures due to persistent fever, patient had exposure on family with positive flu We will add prn medication for fever,pain,cough and nausea Home medication has been reviewed and reconciled Request physical therapy to eval and treat Fall precaution Continue frequent turning Q 2 hours to prevent decubitus ulcer We will request dietary consultation to assess malnutrition Stat KUB and chest x-ray We will request labs in am Further orders to follow depending on above results Case discussed with attending physician and came up with above treatment and plan of care. ATTESTATION BY PHYSICIAN I have seen and examined the patient. I reviewed the documentation, medical decision making, and treatment plan as noted by the mid-level provider above. I agree with the findings and plan of care. JOYCE DUNAWAY MD, [facility] Dec 27, 2024 11:57
[2024-12-27] MEDS ORDERED: LACTULOSE 20 GM/30 ML UDCUP PO PRN (12:00)
[2024-12-27] MEDS: LACTATED RINGERS 1000ML 1,000 ML IV SCH (12:36)
[2024-12-27 14:54] LABS: RAPID GROUP A STREP negative (NEGATIVE)
[2024-12-27 14:56] LABS: SARS-CoV-2, RNA, NAAT NEGATIVE SARS CoV-2 (NEGATIVE)
[2024-12-27 15:03] LABS: INFLUENZA TYPE B Negative For Type B (NEGATIVE)
[2024-12-27 15:08] LABS: INFLUENZA TYPE A Positive For Type A (NEGATIVE)
--- NOTE | 2024-12-27 15:33 | PN ---
This is a 74-year-old female with concerns of constipation versus obstruction Interval history: This 74-year-old female seen in her room resting Patient underwent KUB concerning for increasing distention of the large and small bowel loops and large amount of solid stool but nursing reporting very large bowel movement by patient at this time. Patient has been started on clear liquids Physical exam General: Confused not oriented Heart: Regular rate and rhythm} Lungs: [Clear to auscultation no distress Abdomen: [Soft, nontender, nondistended Assessment : This is a74 old female with concerns of obstruction which appears to have resolved Plan: Patient to remain on clear liquid diet for today KUB to be ordered for the morning No immediate surgical intervention at this time Surgical team to follow patient closely nursing report any further acute events Vitals/Labs Vital Signs Date Time Temp Pulse Resp B/P (MAP) Pulse Ox O2 Delivery O2 Flow Rate FiO2 12/27/24 11:53 98.2 100 20 138/78 95 Room Air 12/27/24 08:00 0 21 Laboratory Tests 12/27/24 05:34 Medications Current Medications Acetaminophen 1,000 mg ONCE ONCE PO; Start 12/25/24 at 20:00; Stop 12/25/24 at 20:59; Status DC Sodium Chloride 1,000 ml @ 0 mls/hr ONCE ONCE IV Last administered on 12/25/24at 20:50; Start 12/25/24 at 20:00; Stop 12/25/24 at 20:01; Status [facility]; Start 12/25/24 at 21:00; Stop 12/26/24 at 01:17; Status DC Acetaminophen 650 mg Q6H6 IVPB; Start 12/26/24 at 00:00; Stop 12/25/24 at 21:26; Status DC Acetaminophen 650 mg Q6H6 IVPB; Start 12/26/24 at 22:00; Stop 12/25/24 at 21:29; Status DC Acetaminophen 650 mg Q6H6 IVPB Last administered on 12/27/24at 12:36; Start 12/25/24 at 22:00; Stop 01/24/25 at 21:59 Ceftriaxone Sodium 1 gm ONCE ONCE IVPB Last administered on 12/25/24at 23:40; Start 12/25/24 at 23:00; Stop 12/25/24 at 23:01; Status DC Acetaminophen 650 mg Q6H PRN PO; Start 12/26/24 at 04:30; Stop 01/25/25 at 04:29 Acetaminophen 650 mg Q4H PRN PO; Start 12/26/24 at 04:30; Stop 01/25/25 at 04:29 Ondansetron HCl 4 mg Q6H PRN IV; Start 12/26/24 at 04:30; Stop 01/25/25 at 04:29 Famotidine 20 mg Q24H IV Last administered on 12/27/24at 09:17; Start 12/26/24 at 09:00; Stop 01/25/25 at 08:59 Ceftriaxone Sodium 1 gm BID IV Last administered on 12/27/24at 09:17; Start 12/26/24 at 09:00; Stop 01/05/25 at 08:59 Sodium Chloride 1,000 ml @ 100 mls/hr Q10H IV Last administered on 12/27/24at 00:43; Start 12/26/24 at 04:30; Stop 01/25/25 at 04:29 Magnesium Sulfate 50 ml @ 0 mls/hr PROTOCOL IV Last administered on 12/26/24at 13:05; Start 12/26/24 at 09:30; Stop 01/25/25 at 09:29 Oseltamivir Phosphate 75 mg BID PO; Start 12/27/24 at 21:00; Stop 01/01/25 at 20:59 Lactated Ringer's 1,000 ml @ 50 mls/hr Q20H IV Last administered on 12/27/24at 12:36; Start 12/27/24 at 12:00; Stop 01/26/25 at 11:59 Lactulose 20 gm BID PRN PO; Start 12/27/24 at 12:00; Stop 01/26/25 at 11:59 Aspirin 81 mg DAILY PO; Start 12/28/24 at 09:00; Stop 01/27/25 at 08:59 Folic Acid 1 mg DAILY PO; Start 12/28/24 at 09:00; Stop 01/27/25 at 08:59 Fluoxetine HCl 20 mg DAILY PO; Start 12/28/24 at 09:00; Stop 01/27/25 at 08:59 Polyethylene Glycol 17 gm DAILY PO; Start 12/28/24 at 09:00; Stop 3/3/25 at 08:59 MANJEET JAIME Jr. Dec 27, 2024 15:33
[2024-12-27 15:59] VITALS: BP 136/78; PULSE 101; RESP 17; TEMP 97.8
--- NOTE | 2024-12-27 18:16 | NUR ---
CHART FROM LAST VISIT REVIEWED PER LAST ADMISSION:. Patient lives w spouse/ daughter named Hal Novoa. hours. Reports patient has wheelchair and hospital bed at home. States patient's baseline mobility is wheelchair and bedbound patient transfers with assistance. CM discussed possible short term rehab placement. Daughter declined. [facility] plan will be to return home. CM verified home address for possible EMS arrangements at discharge: [address] [facility] [place] [address]. . CALLED TO FAMILY MEMBER THIS ADMIT UNABLE TO GET RESPONSE. [place] PENDING
[2024-12-27 20:00] VITALS: BP 127/60; PULSE 91; RESP 19; TEMP 99.6; O2SAT 96
[2024-12-27] MEDS: OSELTAMIVIR PHOSPHATE 75 MG CAP PO SCH (21:46)
[2024-12-28] VITALS (7 sets, daily range): BP systolic 110–148; BP diastolic 50–72; PULSE 81–94; RESP 17–19; TEMP 97.3–100; O2SAT 93–98
[2024-12-28 05:49] LABS: MEAN CORPUSCULAR HEMOGLOBIN 27.7 pg (27.0-33.0); MEAN CORPUSCULAR HGB CONC 32.1 g/dL (32.0-36.0); MEAN CORPUSCULAR VOLUME 86.4 fL (79-99); RED BLOOD CELL COUNT(AUTO) 4.4 MIL/uL (4.00-5.50); RED CELL DISTRIBUTION WIDTH 12.5 % (11.0-15.5); WHITE BLOOD COUNT (AUTO) 7.4 K/uL (4.8-10.8)
[2024-12-28 05:57] LABS: CREATININE 0.6 mg/dL (0.5-1.0); MAGNESIUM 1.7 mg/dL (1.80-2.40); POTASSIUM 3.3 mmol/L (3.5-5.1)
--- NOTE | 2024-12-28 08:59 | HMCIMG ---
Exam Type: ABD 1VW Clinical Information: FECAL IMPACTION Comparison: None Findings: Abdomen demonstrates no evidence of pathologic calcification or soft tissue mass. There are no radiopacities to suggest calculous disease. The intestinal gas pattern is within normal limits without evidence of dilatation to suggest obstruction or adynamic ileus. The bony structures are unremarkable. IMPRESSION: Normal abdomen.
[2024-12-28] MEDS: FLUoxetine HCL 20 MG CAPSULE PO SCH (10:08)
[2024-12-28] MEDS: ASPIRIN 81 MG EC TAB PO SCH (10:08)
[2024-12-28] MEDS: FOLic ACID 1 MG TABLET PO SCH (10:08)
[2024-12-28] MEDS: polyETHYLene GLYCol 3350 17 GM POWD.PACK PO SCH (10:09)
[2024-12-28] MEDS: PoTASSium chloRIDE 20MEQ ER 20 MEQ ERTAB PO ONE ×2 (10:16→12:44)
--- NOTE | 2024-12-28 10:20 | PN ---
[facility] PROGRESS NOTE Date of Service: Dec 28, 2024 Time of Service: 10:09 SUBJECTIVE: [74 year old female admitted due to nausea vomiting abdominal pain. Imaging showed small bowel obstruction, repeated once showed increased intention of large and small loops, predominantly air-filled. There appears to be large amount of solid fecal material in the rectum, fecal impaction could cause this appearance. Patient is status post bowel prep, patient had two big bowel. She was evaluated in 419, patient continues with low-grade fever this morning. Patient has normal white count though came back positive with influenza a. She was started with Tamiflu 75 mg p.o. b.i.d. yesterday. Potassium 3.3, magnesium 1.7 for which we will replace per protocol. She will continue to work with physical therapy. Discussed plan with patient's daughter who is at bedside] REVIEW OF SYSTEMS unable to perform patient is cognitively impaired PHYSICAL EXAM GENERAL APPEARANCE: Patient is asleep and arousable in no acute cardiopulmonary distress. NEUROLOGICAL: Patient is cognitively impaired with right-sided paralysis which is her baseline HEENT: Face is symmetric. Pupils are equal and reactive. Extraocular movements are intact. NECK: Supple. No JVD. No thyromegaly. No submental, submandibular, pre- /postauricular, occipital or supraclavicular lymphadenopathy. CHEST: Normal chest expansion. No Telemetry. LUNGS: Absence of any rales, rhonchi or any wheezing. CARDIOVASCULAR: Regular. S1 and S2 normal. No appreciable rubs, murmurs or gallops. ABDOMEN: Soft, nontender, and nondistended. There is no rebound, voluntary guarding, or rigidity. : Deferred. Stewart. EXTREMITIES: Non-edematous and not cyanotic. No clubbing. Good capillary refill. SKIN: No skin breakdown. Vital Signs (last 8hr) Date Time Temp Pulse Resp B/P (MAP) Pulse Ox O2 Delivery O2 Flow Rate FiO2 12/28/24 08:00 100.0 93 19 139/61 98 Room Air 12/28/24 04:00 99.3 85 19 132/72 93 Room Air LABS: Laboratory: Test 12/28/24 05:22 12/27/24 14:33 12/27/24 06:02 Range/Units White Blood Count 7.4 # 4.8-10.8 K/uL Red Blood Count 4.40 4.00-5.50 MIL/uL Hemoglobin 12.2 12.0-16.0 g/dL Hematocrit 38.0 36-48 % Mean Corpuscular Volume 86.4 79-99 fL Mean Corpuscular Hemoglobin 27.7 27.0-33.0 pg Mean Corpuscular Hemoglobin Concent 32.1 32.0-36.0 g/dL Red Cell Distribution Width 12.5 11.0-15.5 % Platelet Count 148 130-400 K/uL Mean Platelet Volume 10.1 7.5-10.5 fL Nucleated Red Blood Cells 0.0 0.0-0.19 % Sodium Level 139 136-145 mmol/L Potassium Level 3.3 L 3.5-5.1 mmol/L Chloride Level 105 101-111 mmol/L Carbon Dioxide Level 23 21-32 mmol/L Blood Urea Nitrogen 9 7-18 mg/dL Creatinine 0.6 0.5-1.0 mg/dL Glomerular Filtration Rate Calc 94 >90 mL/min Random Glucose 73 70-105 mg/dL Total Calcium 8.1 L 8.5-10.1 mg/dL Magnesium Level 1.70 L 1.80-2.40 mg/dL Influenza Type A Antigen Positive For Type A *A NEGATIVE Influenza Type B Antigen Negative For Type B NEGATIVE SARS-CoV-2, RNA, NAAT NEGATIVE SARS CoV-2 NEGATIVE Group A Streptococcus Rapid negative NEGATIVE Whole Blood Glucose 75 70-110 MG/DL Current Medications Medications (Trade) Dose Ordered Sig/Lonnie Route PRN Reason Start Time Stop Time Status Last Admin Dose Admin Acetaminophen (TYLenol 325MG TAB) 650 mg Q4H PRN PO MILD PAIN (1-3) 12/26/24 04:30 01/25/25 04:29 Acetaminophen (TYLenol 325MG TAB) 650 mg Q6H PRN PO TEMPERATURE GREATER THAN 101.5 12/26/24 04:30 01/25/25 04:29 Acetaminophen (acetaMINOPHEN) 650 mg Q6H6 IVPB 12/25/24 22:00 12/27/24 18:48 DC 12/27/24 17:29 650 MG Acetaminophen (acetaMINOPHEN) 650 mg Q6H6 IVPB 12/26/24 00:00 12/25/24 21:26 DC Acetaminophen (acetaMINOPHEN) 650 mg Q6H6 IVPB 12/26/24 22:00 12/25/24 21:29 DC Aspirin (Aspirin 81mg Ec Tab) 81 mg DAILY PO 12/28/24 09:00 01/27/25 08:59 Ceftriaxone Sodium (ROCEphine 1G INJ) 1 gm BID IV 12/26/24 09:00 01/05/25 08:59 12/27/24 21:46 1 GM Famotidine (Pepcid 20mg Vial) 20 mg Q24H IV 12/26/24 09:00 01/25/25 08:59 12/27/24 09:17 20 MG Fluoxetine HCl (FLUoxetine HCL 20 MG CAPSULE) 20 mg DAILY PO 12/28/24 09:00 01/27/25 08:59 Folic Acid (FOLic ACID 1 MG TABLET) 1 mg DAILY PO 12/28/24 09:00 01/27/25 08:59 Lactated Ringer's 1,000 ml @ 50 mls/hr Q20H IV 12/27/24 12:00 01/26/25 11:59 12/27/24 12:36 50 MLS/HR Lactulose (Constulose 20gm/ 30ml Udcup) 20 gm BID PRN PO CONSTIPATION 12/27/24 12:00 01/26/25 11:59 Magnesium Sulfate 50 ml @ 0 mls/hr PROTOCOL IV 12/26/24 09:30 01/25/25 09:29 12/26/24 13:05 25 MLS/HR Ondansetron HCl (zoFRAN 4MG INJ) 4 mg Q6H PRN IV NAUSEA/VOMITING 12/26/24 04:30 01/25/25 04:29 Oseltamivir Phosphate (Tamiflu) 75 mg BID PO 12/27/24 21:00 01/01/25 20:59 12/27/24 21:46 75 MG Pharmacy Profile Note (Lace Assessment) 1 each AD MISC 12/25/24 21:00 12/26/24 01:17 DC Polyethylene Glycol (MIRalax 3350 17 GM POWD.PACK) 17 gm DAILY PO 12/28/24 09:00 01/27/25 08:59 Sodium Chloride 1,000 ml @ 100 mls/hr Q10H IV 12/26/24 04:30 01/25/25 04:29 12/27/24 00:43 100 MLS/HR DIAGNOSTICS / RADIOLOGY: [ ] ASSESSMENT: Influenza A, not could be related to SIRS on admission Suspected abdominal Ileus versus small-bowel obstruction POA Sirs with organ dysfunction POA, related to upper respiratory infection Suspected urinary tract infection POA-ruled out Protein calorie malnutrition POA Functional quadriplegia POA History of stroke x2 with right-sided paralysis POA PLAN: Continue with medical telemetry Patient started on clear liquid now can be advance to FULL liquid for lunch and if tolerated Soft diet for dinner Continue with LR at 50 mL/hour Continue to monitor Blood sugar with ACHS glucometer and insulin sliding scale. C/w Rocephin 1 g IV for empiric coverage C/w Famotidine 20 mg IV daily for GI prophylaxis We will continue to replace electrolytes as needed per protocol Serology reviewed, positive with Influenza A We will add prn medication for fever,pain,cough and nausea Home medication has been reviewed and reconciled Request physical therapy to eval and treat Fall precaution Continue frequent turning Q 2 hours to prevent decubitus ulcer We will request dietary consultation to assess malnutrition Repeat labs in AM Further orders to follow depending on above results Case discussed with attending physician and came up with above treatment and plan of care. ATTESTATION BY PHYSICIAN I have seen and examined the patient. I reviewed the documentation, medical decision making, and treatment plan as noted by the mid-level provider above. I agree with the findings and plan of care. JOYCE DUNAWAY MD, [facility] B [facility] Dec 28, 2024 10:20
--- NOTE | 2024-12-28 11:00 | PN ---
This is a 74-year-old female consulted to surgery for concerns of potential small-bowel obstruction Interval history: This 74-year-old female seen in her room resting Patient continues with multiple bowel movements KUB yesterday evening unremarkable with no obstruction noted Patient is started on clear liquid diet Physical exam General: Awake alert and oriented Heart: Regular rate and rhythm} Lungs: Clear to auscultation no distress Abdomen: [Soft, nontender, nondistended Assessment : This is a 74-year-old female with resolving small-bowel obstruction Plan: No surgical intervention at this time Diet to be advanced as tolerated Surgical team to sign off at this time Re-consult Surgical team if any new concerns present Dr. Mejia to be updated in patient's status Vitals/Labs Vital Signs Date Time Temp Pulse Resp B/P (MAP) Pulse Ox O2 Delivery O2 Flow Rate FiO2 12/28/24 08:00 100.0 93 19 139/61 98 Room Air 12/27/24 20:00 0 21 Laboratory Tests 12/28/24 05:22 Medications Current Medications Acetaminophen 1,000 mg ONCE ONCE PO; Start 12/25/24 at 20:00; Stop 12/25/24 at 20:59; Status DC Sodium Chloride 1,000 ml @ 0 mls/hr ONCE ONCE IV Last administered on 12/25/24at 20:50; Start 12/25/24 at 20:00; Stop 12/25/24 at 20:01; Status DC Pharmacy Profile Note 1 each [facility] [place] Start 12/25/24 at 21:00; Stop 12/26/24 at 01:17; Status DC Acetaminophen 650 mg Q6H6 IVPB; Start 12/26/24 at 00:00; Stop 12/25/24 at 21:26; Status DC Acetaminophen 650 mg Q6H6 IVPB; Start 12/26/24 at 22:00; Stop 12/25/24 at 21:29; Status DC Acetaminophen 650 mg Q6H6 IVPB Last administered on 12/27/24at 17:29; Start 12/25/24 at 22:00; Stop 12/27/24 at 18:48; Status DC Ceftriaxone Sodium 1 gm ONCE ONCE IVPB Last administered on 12/25/24at 23:40; Start 12/25/24 at 23:00; Stop 12/25/24 at 23:01; Status DC Acetaminophen 650 mg Q6H PRN PO; Start 12/26/24 at 04:30; Stop 01/25/25 at 04:29 Acetaminophen 650 mg Q4H PRN PO; Start 12/26/24 at 04:30; Stop 01/25/25 at 04:29 Ondansetron HCl 4 mg Q6H PRN IV; Start 12/26/24 at 04:30; Stop 01/25/25 at 04:29 Famotidine 20 mg Q24H IV Last administered on 12/28/24at 10:08; Start 12/26/24 at 09:00; Stop 01/25/25 at 08:59 Ceftriaxone Sodium 1 gm BID IV Last administered on 12/28/24at 10:08; Start 12/26/24 at 09:00; Stop 01/05/25 at 08:59 Sodium Chloride 1,000 ml @ 100 mls/hr Q10H IV Last administered on 12/27/24at 00:43; Start 12/26/24 at 04:30; Stop 01/25/25 at 04:29 Magnesium Sulfate 50 ml @ 0 mls/hr PROTOCOL IV Last administered on 12/28/24at 10:10; Start 12/26/24 at 09:30; Stop 01/25/25 at 09:29 Oseltamivir Phosphate 75 mg BID PO Last administered on 12/28/24at 10:08; Start 12/27/24 at 21:00; Stop 01/01/25 at 20:59 Lactated Ringer's 1,000 ml @ 50 mls/hr Q20H IV Last administered on 12/28/24at 10:08; Start 12/27/24 at 12:00; Stop 01/26/25 at 11:59 Lactulose 20 gm BID PRN PO; Start 12/27/24 at 12:00; Stop 01/26/25 at 11:59 Aspirin 81 mg DAILY PO Last administered on 12/28/24at 10:08; Start 12/28/24 at 09:00; Stop 01/27/25 at 08:59 Folic Acid 1 mg DAILY PO Last administered on 12/28/24at 10:08; Start 12/28/24 at 09:00; Stop 01/27/25 at 08:59 Fluoxetine HCl 20 mg DAILY PO Last administered on 12/28/24at 10:08; Start 12/28/24 at 09:00; Stop 01/27/25 at 08:59 Polyethylene Glycol 17 gm DAILY PO Last administered on 12/28/24at 10:09; Start 12/28/24 at 09:00; Stop 01/27/25 at 08:59 Potassium Chloride 40 meq ONCE ONCE PO Last administered on 12/28/24at 10:16; Start 12/28/24 at 10:30; Stop 12/28/24 at 10:31; Status DC Potassium Chloride 100 ml @ 100 mls/hr AD PRN IV; Start 12/28/24 at 10:30; Stop 01/27/25 at 10:29 Potassium Chloride 20 meq AD PRN PO; Start 12/28/24 at 10:30; Stop 01/27/25 at 10:29 Potassium Chloride 20 meq AD PRN PO; Start 12/28/24 at 10:30; Stop 01/27/25 at 10:29 MANJEET JAIME Jr. Dec 28, 2024 11:00
--- NOTE | 2024-12-28 12:03 | NUR ---
DCP: INITIAL ASSESSMENT Patient lives with daughter, Hal Novoa. She has no home health but does have PHC with [facility] X 40 hours as per daughter. DME: hospital bed, wheelchair. Patient needs help with ADLs and does not drive. PCP is Dr. Noemí Roque. Pharmacy is [facility] in [place]. Patient's daughter voiced no issues with not having stable mcc or transportation. No concerns voiced regarding not having enough food in the home. No safety concerns voiced regarding returning home. DCP is home. Addendum: 12/28/24 at 1208 by AQUILES HICKEY Amended: Links added.
--- NOTE | 2024-12-28 12:08 | NUR ---
EMERGENCY CONTACTS Hal Palmer (daughter) [phone] Tiffany Palmer (daughter) [phone]
[2024-12-28] MEDS ORDERED: MAGNESIUM 2GM PREMIX 50ML 50 ML IV SCH (12:30)
[2024-12-29] VITALS (7 sets, daily range): BP systolic 126–143; BP diastolic 64–77; PULSE 72–84; RESP 18–19; TEMP 97.9–100.1; O2SAT 94
[2024-12-29 04:45] LABS: HEMATOCRIT 31.6 % (36-48); MEAN CORPUSCULAR HEMOGLOBIN 27.7 pg (27.0-33.0); MEAN CORPUSCULAR HGB CONC 32.3 g/dL (32.0-36.0); MEAN CORPUSCULAR VOLUME 85.9 fL (79-99); RED BLOOD CELL COUNT(AUTO) 3.68 MIL/uL (4.00-5.50); RED CELL DISTRIBUTION WIDTH 12.5 % (11.0-15.5); WHITE BLOOD COUNT (AUTO) 4.1 K/uL (4.8-10.8)
[2024-12-29 05:15] LABS: CREATININE 0.6 mg/dL (0.5-1.0); MAGNESIUM 1.9 mg/dL (1.80-2.40)
[2024-12-29 05:49] LABS: POTASSIUM 2.7 mmol/L (3.5-5.1)
[2024-12-29] MEDS: PoTASSium chloRIDE 20MEQ ER 20 MEQ ERTAB PO PRN (09:56)
[2024-12-29] MEDS: PoTASSium chloRIDE 20MEQ/100ML 100 ML IV PRN (09:56)
--- NOTE | 2024-12-29 12:03 | PN ---
[facility] PROGRESS NOTE Date of Service: Dec 29, 2024 Time of Service: 12:02 SUBJECTIVE: [74 year old female admitted due to nausea vomiting abdominal pain. Imaging showed small bowel obstruction, repeated once showed increased intention of large and small loops, predominantly air-filled. There appears to be large amount of solid fecal material in the rectum, fecal impaction could cause this appearance. Patient is status post bowel prep, patient already having BM. Patient's potassium is 2.7 today despite replacing yesterday. Magnesium is 1.9. We will continue to replete all electrolytes per protocol. Patient was evaluated in room 419, no family at bedside. Patient is asleep. No acute events reported overnight we will continue to monitor. REVIEW OF SYSTEMS unable to perform patient is cognitively impaired PHYSICAL EXAM GENERAL APPEARANCE: Patient is asleep and arousable in no acute cardiopulmonary distress. NEUROLOGICAL: Patient is cognitively impaired with right-sided paralysis which is her baseline HEENT: Face is symmetric. Pupils are equal and reactive. Extraocular movements are intact. NECK: Supple. No JVD. No thyromegaly. No submental, submandibular, pre- /postauricular, occipital or supraclavicular lymphadenopathy. CHEST: Normal chest expansion. No Telemetry. LUNGS: Absence of any rales, rhonchi or any wheezing. CARDIOVASCULAR: Regular. S1 and S2 normal. No appreciable rubs, murmurs or gallops. ABDOMEN: Soft, nontender, and nondistended. There is no rebound, voluntary guarding, or rigidity. : Deferred. Stewart. EXTREMITIES: Non-edematous and not cyanotic. No clubbing. Good capillary refill. SKIN: No skin breakdown. Vital Signs (last 8hr) Date Time Temp Pulse Resp B/P (MAP) Pulse Ox O2 Delivery O2 Flow Rate FiO2 12/29/24 08:00 100.0 80 19 143/74 94 Room Air LABS: Laboratory: Test 12/29/24 04:21 12/27/24 14:33 Range/Units White Blood Count 4.1 #L 4.8-10.8 K/uL Red Blood Count 3.68 L 4.00-5.50 MIL/uL Hemoglobin 10.2 L 12.0-16.0 g/dL Hematocrit 31.6 L 36-48 % Mean Corpuscular Volume 85.9 79-99 fL Mean Corpuscular Hemoglobin 27.7 27.0-33.0 pg Mean Corpuscular Hemoglobin Concent 32.3 32.0-36.0 g/dL Red Cell Distribution Width 12.5 11.0-15.5 % Platelet Count 169 130-400 K/uL Mean Platelet Volume 9.9 7.5-10.5 fL Nucleated Red Blood Cells 0.0 0.0-0.19 % Sodium Level 135 L 136-145 mmol/L Potassium Level 2.7 *L 3.5-5.1 mmol/L Chloride Level 102 101-111 mmol/L Carbon Dioxide Level 25 21-32 mmol/L Blood Urea Nitrogen 9 7-18 mg/dL Creatinine 0.6 0.5-1.0 mg/dL Glomerular Filtration Rate Calc 94 >90 mL/min Random Glucose 70 70-105 mg/dL Total Calcium 7.6 L 8.5-10.1 mg/dL Magnesium Level 1.90 1.80-2.40 mg/dL Influenza Type A Antigen Positive For Type A *A NEGATIVE Influenza Type B Antigen Negative For Type B NEGATIVE SARS-CoV-2, RNA, NAAT NEGATIVE SARS CoV-2 NEGATIVE Group A Streptococcus Rapid negative NEGATIVE Current Medications Medications (Trade) Dose Ordered Sig/Lonnie Route PRN Reason Start Time Stop Time Status Last Admin Dose Admin Acetaminophen (TYLenol 325MG TAB) 650 mg Q4H PRN PO MILD PAIN (1-3) 12/26/24 04:30 01/25/25 04:29 Acetaminophen (TYLenol 325MG TAB) 650 mg Q6H PRN PO TEMPERATURE GREATER THAN 101.5 12/26/24 04:30 01/25/25 04:29 Acetaminophen (acetaMINOPHEN) 650 mg Q6H6 IVPB 12/25/24 22:00 12/27/24 18:48 DC 12/27/24 17:29 650 MG Acetaminophen (acetaMINOPHEN) 650 mg Q6H6 IVPB 12/26/24 00:00 12/25/24 21:26 DC Acetaminophen (acetaMINOPHEN) 650 mg Q6H6 IVPB 12/26/24 22:00 12/25/24 21:29 DC Aspirin (Aspirin 81mg Ec Tab) 81 mg DAILY PO 12/28/24 09:00 01/27/25 08:59 12/29/24 09:55 81 MG Ceftriaxone Sodium (ROCEphine 1G INJ) 1 gm BID IV 12/26/24 09:00 01/05/25 08:59 12/29/24 09:55 1 GM Famotidine (Pepcid 20mg Vial) 20 mg Q24H IV 12/26/24 09:00 01/25/25 08:59 12/29/24 09:55 20 MG Fluoxetine HCl (FLUoxetine HCL 20 MG CAPSULE) 20 mg DAILY PO 12/28/24 09:00 01/27/25 08:59 12/29/24 09:55 20 MG Folic Acid (FOLic ACID 1 MG TABLET) 1 mg DAILY PO 12/28/24 09:00 01/27/25 08:59 12/29/24 09:55 1 MG Lactated Ringer's 1,000 ml @ 50 mls/hr Q20H IV 12/27/24 12:00 01/26/25 11:59 12/29/24 09:54 50 MLS/HR Lactulose (Constulose 20gm/ 30ml Udcup) 20 gm BID PRN PO CONSTIPATION 12/27/24 12:00 01/26/25 11:59 Magnesium Sulfate 50 ml @ 0 mls/hr PROTOCOL IV 12/26/24 09:30 01/25/25 09:29 12/28/24 10:10 25 MLS/HR Magnesium Sulfate 50 ml @ 0 mls/hr PROTOCOL IV 12/28/24 12:30 01/27/25 12:29 Ondansetron HCl (zoFRAN 4MG INJ) 4 mg Q6H PRN IV NAUSEA/VOMITING 12/26/24 04:30 01/25/25 04:29 Oseltamivir Phosphate (Tamiflu) 75 mg BID PO 12/27/24 21:00 01/01/25 20:59 12/29/24 09:55 75 MG Pharmacy Profile Note (Lace Assessment) 1 each AD MISC 12/25/24 21:00 12/26/24 01:17 DC Polyethylene Glycol (MIRalax 3350 17 GM POWD.PACK) 17 gm DAILY PO 12/28/24 09:00 01/27/25 08:59 12/29/24 09:55 17 GM Potassium Chloride 100 ml @ 100 mls/hr AD PRN IV POTASSIUM PROTOCOL 12/28/24 10:30 01/27/25 10:29 12/29/24 09:56 100 MLS/HR Potassium Chloride (K-Dur/Klor-Con 20meq) 20 meq AD PRN PO POTASSIUM PROTOCOL 12/28/24 10:30 01/27/25 10:29 12/29/24 09:56 20 MEQ Potassium Chloride (KCl 10% Elixir 20meq/15ml) 20 meq AD PRN PO POTASSIUM PROTOCOL 12/28/24 10:30 01/27/25 10:29 Sodium Chloride 1,000 ml @ 100 mls/hr Q10H IV 12/26/24 04:30 12/28/24 19:52 DC 12/27/24 00:43 100 MLS/HR DIAGNOSTICS / RADIOLOGY: [ ] ASSESSMENT: Persistent hypokalemia Influenza A, not could be related to SIRS on admission Suspected abdominal Ileus versus small-bowel obstruction POA Sirs with organ dysfunction POA, related to upper respiratory infection Suspected urinary tract infection POA-ruled out Protein calorie malnutrition POA Functional quadriplegia POA History of stroke x2 with right-sided paralysis POA PLAN: Continue with medical telemetry Diet advanced to soft today Continue with LR at 50 mL/hour Continue to monitor Blood sugar with ACHS glucometer and insulin sliding scale. C/w Rocephin 1 g IV for empiric coverage C/w Famotidine 20 mg IV daily for GI prophylaxis Patient is having persistent hypokalemia, 2.7 today, we will replace aggressively and repeat labs CBC and BMP now. Magnesium 1.9 we will replace per protocol Serology reviewed, positive with Influenza A We will add prn medication for fever,pain,cough and nausea Home medication has been reviewed and reconciled Request physical therapy to eval and treat Fall precaution Continue frequent turning Q 2 hours to prevent decubitus ulcer We will request dietary consultation to assess malnutrition Repeat labs in AM Further orders to follow depending on above results Case discussed with attending physician and came up with above treatment and plan of care. ATTESTATION BY PHYSICIAN I have seen and examined the patient. I reviewed the documentation, medical decision making, and treatment plan as noted by the mid-level provider above. I agree with the findings and plan of care. JOYCE DUNAWAY MD, JANICE B [facility] Dec 29, 2024 12:03
[2024-12-29 12:25] LABS: HEMATOCRIT 29.3 % (36-48); MEAN CORPUSCULAR HEMOGLOBIN 27.6 pg (27.0-33.0); MEAN CORPUSCULAR HGB CONC 33.1 g/dL (32.0-36.0); MEAN CORPUSCULAR VOLUME 83.2 fL (79-99); RED BLOOD CELL COUNT(AUTO) 3.52 MIL/uL (4.00-5.50); RED CELL DISTRIBUTION WIDTH 12.8 % (11.0-15.5); WHITE BLOOD COUNT (AUTO) 5.6 K/uL (4.8-10.8)
[2024-12-29] MEDS: PoTASSium chl 10% ELIXIR 20MEQ 20 MEQ/15 ML UDCUP PO PRN (12:32)
[2024-12-29 12:39] LABS: BILIRUBIN,TOTAL 0.2 mg/dL (0.2-1.0); CREATININE 0.5 mg/dL (0.5-1.0); MAGNESIUM 1.6 mg/dL (1.80-2.40); POTASSIUM 3.1 mmol/L (3.5-5.1); TOTAL PROTEIN, SERUM 5.7 g/dL (6.0-8.3)
[2024-12-30] VITALS: BP 121/65; PULSE 72; RESP 18; TEMP 97.4
[2024-12-30 03:40] VITALS: BP 129/76; PULSE 75; RESP 18; TEMP 98
[2024-12-30 05:50] LABS: HEMATOCRIT 31.2 % (36-48); MEAN CORPUSCULAR HEMOGLOBIN 27.3 pg (27.0-33.0); MEAN CORPUSCULAR HGB CONC 32.4 g/dL (32.0-36.0); MEAN CORPUSCULAR VOLUME 84.3 fL (79-99); PLATELET COUNT (AUTO) 195 K/uL (130-400); RED CELL DISTRIBUTION WIDTH 12.7 % (11.0-15.5)
[2024-12-30 06:15] LABS: ALBUMIN 2.1 g/dL (3.5-5.0); BILIRUBIN,TOTAL 0.2 mg/dL (0.2-1.0); CREATININE 0.4 mg/dL (0.5-1.0); MAGNESIUM 1.9 mg/dL (1.80-2.40); POTASSIUM 4.1 mmol/L (3.5-5.1); TOTAL PROTEIN, SERUM 5.8 g/dL (6.0-8.3)
[2024-12-30 07:55] LABS: BAND NEUTROPHILS % (MANUAL) 1 % (0-2); LYMPHOCYTES % (MANUAL) 26 % (22-44); MAN.DIFF COMMENT-IMPRESSION MANUAL DIFFERENTIAL; MONOCYTES % (MANUAL) 5 % (2-9); SEGMENTED NEUTROPHILS % 68 % (40-70); TOTAL CELLS COUNTED 100
[2024-12-30 07:58] LABS: PLATELET MORPHOLOGY COMMENT ADEQUATE; WBC MORPHOLOGY REACTIVE LYMPHS 1+
[2024-12-30 08:00] VITALS: BP 135/73; PULSE 76; RESP 18; TEMP 97.7; O2SAT 94
[2024-12-30 11:54] VITALS: BP 131/66; PULSE 80; RESP 18; TEMP 98.1
[2024-12-30] MEDS ORDERED: OSEL75 PO (13:07)
[2024-12-30] MEDS ORDERED: AMOX1TAB16 PO (13:10)
--- NOTE | 2024-12-30 13:17 | DS ---
Discharge Summary Hospital Course Summary: DATE OF ADMISSION:[12/26/2024] DATE OF DISCHARGE:[12/30/2024] DISPOSITION:[Home] CONDITION:[Medically stable] CONSULTANTS:[Surgeon] FOLLOW UP APPOINTMENTS:[PCP 2 to 3 days. 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): As per H and P This is a 74-year-old female, a poor historian, with past medical history of dementia, stroke x2, hypertension who presents to the ED for complaints of fever ,chills body pains and loss of appetite.Patient is non commu nicative and unable to talk wihich is her baseline due to previous stroke x 2 with a right sided paralysis as per grand daughter Fiona Jasmine.Patient has been bedbound as per family and needs total assistance with care.Patient refused to eat today had been complaining of sorethroat and having some cough however patient had a temperature of 100 at home and T102 so family decided to send patient to the ED for evaluation.Details and information are mostly taken from ER MD ,primary nurse and grand daughter who states she has very limited knowledge because her mom is the one taking care of the patient and is not available at this time. As per grand daughter patient has no bowel movement today but not sure when was her last BM. Upon arrival vital signs was te mperature of a 100.8, heart rate 102, respiration 20, blood pressure 136/73 saturation 97% on room air Seen and examined patient in the ED,asleep but arousable,respirations even and nonlabored.No reported chest pain,abdominal pain ,nausea,vomiting and williams rrhea.Abdomen is soft and non tender with hypoactive bowel sounds on auscultation. Vital signs temperature 99.3, heart rate 94, respirations 16, blood pressure 114/69 saturation 94% on room air. Throughout the hospitalization patient was evaluated by a surgeon Dr. Mejia and no surgical intervention will be performed at this moment. Patient was able to tolerate the diet. Surgical team signed off. Blood culture was negative. Urine final culture negative. Most recent abdomen x-ray was normal. Patient wa s cleared to be discharged home. Follow up with PCP in 2 to 3 days. Follow up with surgeon as needed. Procedure(s): PHYSICAL EXAM GENERAL APPEARANCE: Patient is asleep and arousable in no acute cardiopulmonary distress. NEUROLOGICAL: Patient is cognitively impaired with right-sided paralysis which is her baseline HEENT: Face is symmetric. Pupils are equal and reactive. Extraocular movements are intact. NECK: Supple. No JVD. No thyromegaly. No submental, submandibular, pre-/postauricular, occipital or supraclavicular lymphadenopathy. CHEST: Normal chest expansion. No Telemetry. LUNGS: Absence of any rales, rhonchi or any wheezing. CARDIOVASCULAR: Regular. S1 and S2 normal. No appreciable rubs, murmurs or gallops. ABDOMEN: Soft, nontender, and nondistended. There is no rebound, voluntary guarding, or rigidity. : Deferred. Stewart. EXTREMITIES: Non-edematous and not cyanotic. No clubbing. Good capillary refill. SKIN: No skin breakdown. REVIEW OF SYSTEMS unable to perform patient is cognitively impaired Assessment/Plan: ASSESSMENT: Persistent hypokalemia Influenza A, not could be related to SIRS on admission Suspected abdominal Ileus versus small-bowel obstruction POA Sirs with organ dysfunction POA, related to upper respiratory infection Suspected urinary tract infection POA-ruled out Protein calorie malnutrition POA Functional quadriplegia POA History of stroke x2 with right-sided paralysis POA Home Medications: Reported Medications Aspirin (Aspirin EC) 81 Mg Tablet.dr, 1 TAB PO DAILY for 30 Days, #30 TAB 0 Refills 11/20/24 Folic Acid (Folvite) 1 Mg Tab, 1 TAB PO DAILY for 30 Days, #30 TAB 0 Refills 24 Ferrous Sulfate (Ferrous Sulfate) 325 Mg (65 Mg Iron) Ectab, 1 TAB PO DAILY for 30 Days, #30 TAB 0 Refills 24 Fluoxetine HCl (Fluoxetine HCl) 20 Mg Tablet, 1 TAB PO DAILY for 30 Days, #30 TAB 0 Refills 24 Discontinued Scripts Amoxicillin/Potassium Clav (Amox Tr-K Clv 875-125 mg Tab) 875 Mg-125 Mg Tablet, 1 TAB PO BID for 10 Days, #20 TAB 0 Refills Prov:ANA CARLOS N 11/24/24 Potassium Chloride (Potassium Chloride) 20 Meq Tab.er.prt, 20 MEQ PO DAILY for Hypokalemia for 7 Days, #7 TAB 0 Refills Prov:ANA CARLOS N 11/24/24 Time spent arranging discharge: 31-60 minutes ATTESTATION BY PHYSICIAN I have seen and examined the patient. I reviewed the documentation, medical decision making, and treatment plan as noted by the mid-level provider above. I agree with the findings and plan of care. JOYCE DUNAWAY MD, KATARZYNA B SCIENTIFIC DIVER Dec 30, 2024 13:17
--- NOTE | 2024-12-30 16:20 | NUR ---
PATIENT DISCHARGED HOME ID BAND AND IV REMOVED. DISCHARGE INSTRUCTIONS EXPLAINED AND GIVEN TO PATIENT. PATIENT VERBALIZED UNDERSTANDING. BELONGINGS PACKED AND TAKEN BY PATIENT. WHEELED DOWN TO PRIVATE CAR.
== END 2024-12-30 16:20 | disposition home or self-care (01) | DRG 388 ==
LOC: EDH 18:56 → EDHIP 12-26 04:27 → 4CH 12-26 22:07
PROVIDERS: ADMIT Internal Medicine; ATTEND Internal Medicine
DX: K56.609 Unspecified intestinal obstruction, unspecified as to partial versus complete obstruction (principal); R53.2 Functional quadriplegia; R65.11 Systemic inflammatory response syndrome (SIRS) of non-infectious origin with acute organ dysfunction; E46 Unspecified protein-calorie malnutrition; I69.351 Hemiplegia and hemiparesis following cerebral infarction affecting right dominant side; Z20.822 Contact with and (suspected) exposure to COVID-19; K56.7 Ileus, unspecified; E11.9 Type 2 diabetes mellitus without complications; E87.6 Hypokalemia; F03.90 Unspecified dementia, unspecified severity, without behavioral disturbance, psychotic disturbance, mood disturbance, and anxiety; I10 Essential (primary) hypertension; J10.1 Influenza due to other identified influenza virus with other respiratory manifestations; Z74.01 Bed confinement status; Z79.899 Other long term (current) drug therapy; Z82.49 Family history of ischemic heart disease and other diseases of the circulatory system; Z68.28 Body mass index [BMI] 28.0-28.9, adult
CPT/HCPCS: 36415; 71045; 71250; 74018; 80048; 80053; 80076; 81001; 82550; 82948; 83605; 83735; 84484; 85025; 85027; 85651; 87040; 87086; 87635; 87804; 87880; 93005; 96361; 96365; 96366; 99285; G0378; J0696; J3475; J3480; J3490; J7030